=== PATIENT | male | born 1985 | race Caucasian/White ===

== ENCOUNTER 2017-11-07 03:53 | Observation (INO) | payer SELFPAY ==
[2017-11-07] MEDS ORDERED: ONDANSETRON HCL INJ/PF 4 MG/2 ML SDV IV ONE (04:06)
--- NOTE | 2017-11-07 04:17 | ER Document Report ---
ED General - General Chief Complaint: Nausea/Vomiting Stated Complaint: VOMITING Time Seen by Provider: 11/07/17 04:06 Notes: 32-year-old male presents with vomiting diarrhea. Started 3 days ago. Vomiting diarrhea started at the same time. Diarrhea has passed after 1 day but the vomiting has persisted. He gets better at night and then worse in the morning. He is been having ice chips only. He denies bloody diarrhea. He does have abdominal cramping which comes and goes around the time of the vomiting. He had chills but no fever. He smokes marijuana but "cannot afford to do it every day" and has never had nausea vomiting from marijuana. No antibiotics foreign travel or contact with her cane water. Denies jaundice. TRAVEL OUTSIDE OF THE [place] IN LAST 30 DAYS: No - Related Data Allergies/Adverse Reactions: Sulfa (Sulfonamide Antibiotics) Allergy (Verified 11/07/17 05:26) Past Medical History - Social History Smoking Status: Never Smoker Drug Abuse: Marijuana Family History: None Review of Systems - Review of Systems Notes: REVIEW OF SYSTEMS GEN: Denies fever, chills, weight loss ENT: Denies sore throat, nasal discharge, ear pain EYES: Denies blurry vision, eye pain, discharge CV: Denies chest pain, palpitations, edema RESP: Denies cough, shortness of breath, wheezing GI: Abdominal pain nausea vomiting MSK: Denies joint pain/swelling, edema, SKIN: Denies rash, skin lesions LYMPH: Denies swollen glands/lymph nodes NEURO: Denies headache, focal weakness or numbness, dizziness PSYCH: Denies depression, suicidal or homicidal ideation PHYSICAL EXAMINATION General: No acute distress, well-nourished Head: Atraumatic, normocephalic ENT: Mouth normal, oropharynx moist, no exudates or tonsillar enlargement Eyes: Conjunctiva normal, pupils equal, lids normal Neck: No JVD, supple, no guarding CVS: Normal rate, regular rhythm, no murmurs Resp: No resp distress, equal and normal breath sounds bilaterally GI: Nondistended, soft, no tenderness to palpation, no rebound or guarding Ext: No deformities, no edema, normal range of motion in upper and lower ext Back: No CVA or midline TTP Skin: No rash, warm Lymphatic: No lymphadeopathy noted Neuro: Awake, alert. Face symmetric. GCS 15. Physical Exam - Vital signs Vitals: Temp Pulse Resp BP Pulse Ox 98.2 F 77 18 137/79 H 100 11/07/17 03:53 11/07/17 03:53 11/07/17 03:53 11/07/17 03:53 11/07/17 03:53 Course - Re-evaluation Re-evalutation: 11/07/17 06:09 Presents with severe nausea and vomiting. Minimal tenderness. Made n.p.o. given fluids and nausea vacation. Differential includes urinary tract infection gastritis gastroneuritis appendicitis #2 colitis. His white count was grossly elevated at 20. CT was ordered. This showed acute appendicitis. Called surgical list at 6:10 AM and will be seen by Dr. TY. - Vital Signs Vital signs: Temp Pulse Resp BP Pulse Ox 98.2 F 77 18 137/79 H 100 11/07/17 03:53 11/07/17 03:53 11/07/17 03:53 11/07/17 03:53 11/07/17 03:53 - Laboratory Result Diagrams: 11/07/17 04:28 11/07/17 04:28 Laboratory results interpreted by me: 11/07/17 11/07/17 11/07/17 04:28 04:28 04:28 WBC 20.3 H Plt Count 556 H Seg Neuts % (Manual) 79 H Lymphocytes % (Manual) 8 L Abs Neuts (Manual) 16.0 H Abs Monocytes (Manual) 1.8 H Chloride 97 L Anion Gap 20 H BUN 35 H Creatinine 1.61 H Est GFR (Non-Af Amer) 49 L Glucose 133 H Calcium 10.3 H Urine Protein 100 H Urine Ketones TRACE H Urine Urobilinogen 2.0 H Ur Leukocyte Esterase SMALL H - Diagnostic Test Radiology reviewed: Image reviewed, Reports reviewed Discharge - Discharge Clinical Impression: Nausea and vomiting Qualifiers: Vomiting type: unspecified Vomiting Intractability: non-intractable Qualified Code(s): R11.2 - Nausea with vomiting, unspecified Acute appendicitis Qualifiers: Acute appendicitis type: with localized peritonitis Qualified Code(s): K35.3 - Acute appendicitis with localized peritonitis Condition: Good Disposition: ADMITTED INPATIENT Admitting Provider: Surgicalist Unit Admitted: Surgical Floor Instructions: Antinausea Medication ([facility]), Diarrhea, Nonspecific ([facility]), Vomiting ([facility]) Additional Instructions: Please follow-up with your primary care doctor if you are not feeling better in a day or 2. Please also return to the emergency department if your pain gets worse, the vomiting medicine does not work or you have any bloody vomit or diarrhea. Prescriptions: Ondansetron [Zofran Odt 4 mg Tablet] 1 - 2 tab PO Q4H PRN #15 tab.rapdis PRN Reason: For Nausea/Vomiting
[2017-11-07 04:49] LABS: MEAN CORPUSCULAR HGB CONC 34.7 g/dL (32.0-36.0); MEAN CORPUSCULAR VOLUME 86 fl (80-97); PLATELET COUNT 556 10^3/uL (150-450); RED BLOOD COUNT 5.33 10^6/uL (4.35-5.55); RED CELL DISTRIBUTION WIDTH 13.4 % (11.5-14.0); WHITE BLOOD COUNT 20.3 10^3/uL (4.0-10.5)
[2017-11-07 05:08] LABS: APPEARANCE,URINE CLOUDY; BILIRUBIN,URINE NEGATIVE (NEGATIVE); BLOOD UREA NITROGEN 35 mg/dL (7-20); CALCIUM 10.3 mg/dL (8.4-10.2); COLOR,URINE AMBER; GLUCOSE 133 mg/dL (75-110); GLUCOSE, URINE NEGATIVE (NEGATIVE); KETONES,URINE TRACE mg/dL (NEGATIVE); LEUKOCYTE ESTERASE,URINE SMALL (NEGATIVE); LIPASE 94.1 U/L (23-300); NITRITE,URINE NEGATIVE (NEGATIVE); POTASSIUM 4.4 mmol/L (3.6-5.0); PROTEIN,URINE 100 mg/dL (NEGATIVE); URINE SPECIFIC GRAVITY 1.033
[2017-11-07 05:09] LABS: ABSOLUTE LYMPHOCYTES# (MANUAL) 2.4 10^3/uL (0.5-4.7); ABSOLUTE MONOCYTES # (MANUAL) 1.8 10^3/uL (0.1-1.4); BASOPHILS % (MANUAL) 0 % (0-2); EOSINOPHILS % (MANUAL) 0 % (0-6); LYMPHOCYTES % (MANUAL) 8 % (13-45); MONOCYTES % (MANUAL) 9 % (3-13); SEGMENTED NEUTROPHILS % (MAN) 79 % (42-78); TOTAL CELLS COUNTED 100
[2017-11-07 05:11] LABS: PLATELET COMMENT INCREASED; RBC MORPHOLOGY COMMENT NORMO-CYTIC/CHROMIC
[2017-11-07 05:13] LABS: CARBON DIOXIDE 26 mmol/L (22-30); CHLORIDE 97 mmol/L (98-107); SODIUM 142.6 mmol/L (137-145)
[2017-11-07] MEDS ORDERED: FENTANYL CITRATE INJ/PF 100 MCG/2 ML AMPUL IV ONE (05:15)
[2017-11-07 05:18] LABS: ANION GAP 20 (5-19)
[2017-11-07] MEDS ORDERED: RINGERS SOLUTION,LACTATED 1,000 ML IV ONE (05:20)
--- NOTE | 2017-11-07 05:57 | RADIOLOGY REPORT (SQ) ---
EXAM DESCRIPTION: CT ABDOMEN PELVIS WITH IV CONTRAST COMPLETED DATE/TME: 11/07/2017 05:15 CLINICAL HISTORY: 32 years, Male, lower abd pain elev WBC COMPARISON: None. TECHNIQUE: Axial CT images of the abdomen and pelvis were obtained after the administration of IV contrast. Sagittal and coronal reformats were performed. DLP 661 Images stored on PACS. All CT scanners at this facility use dose modulation, iterative reconstruction, and/or weight based dosing when appropriate to reduce radiation dose to as low as reasonably achievable (ALARA). [facility]: Dose Right [facility]: CareDose [facility]: Dose Right [facility]: Teradose 4D [facility]: Smart [employer] LIMITATIONS: None. FINDINGS: The lung bases are clear. The liver, gallbladder, pancreas, spleen, adrenal glands, and kidneys appear normal. There is no hydronephrosis. There is no intraperitoneal free air or fluid. There is no lymphadenopathy. The abdominal aorta is normal in caliber. The stomach and small bowel are unremarkable. There is an appendicolith. The appendix is dilated measuring up to 9 mm in diameter with mild stranding around the tip. No evidence of a perforation or abscess/phlegmon formation. The colon appears unremarkable. The urinary bladder and prostate are unremarkable. There are no lytic or blastic bone lesions IMPRESSION: Acute uncomplicated appendicitis TECHNICAL DOCUMENTATION: Quality ID # 436: Final reports with documentation of one or more dose reduction techniques (e.g., Automated exposure control, adjustment of the mA and/or kV according to patient size, use of iterative reconstruction technique) 2010 [employer]- All Rights Reserved
[2017-11-07] MEDS ORDERED: NORMAL SALINE 1000 ML 1,000 ML IV ONE (06:51)
[2017-11-07] MEDS ORDERED: ERTAPENEM SODIUM INJ 1 GM VIAL IV ONE (06:51)
[2017-11-07] MEDS ORDERED: DEXTROSE 40% GEL 15 GM TUBE PO PRN ×2 (07:45)
[2017-11-07] MEDS ORDERED: DEXTROSE 50%-WATER 25 GM/50 ML DISP.SYRIN IV PRN ×2 (07:45)
[2017-11-07] MEDS ORDERED: GLUCAGON,HUMAN RECOMB 1 MG INJ SUBCUT PRN (07:45)
--- NOTE | 2017-11-07 07:45 | PDOC H&P ---
History of Present Illness Admission Date/PCP: 11/07/17 06:29 Patient complains of: Nausea vomiting and abdominal pain History of Present Illness: MADHU OLIVARES is a 32 year old male who presents with 2-day history of persistent nausea and vomiting along with diffuse abdominal pain. Patient has been intolerant of any p.o. intake for the past couple of days. He has had diffuse abdominal pain. After the multiple episodes of emesis he also developed severe indigestion and heartburn. He noticed some brownish discoloration to the emesis recently. He had associated diarrhea for the first day which has since stopped. Patient denies any prior episode of this sort of symptoms. No fever. No prior abdominal surgeries. Past Medical History Medical History: None Musculoskeletal History Note: Broken bones in the past Past Surgical History Past Surgical History: Reports: None Social History Smoking Status: Never Smoker Frequency of Alcohol Use: Rare Drugs: Marijuana Family History Family History: None Parental Family History Reviewed: No Children Family History Reviewed: No Sibling(s) Family History Reviewed.: No Medication/Allergy Home Medications: Ondansetron [Zofran Odt 4 mg Tablet] 1 - 2 tab PO Q4H PRN #15 tab.rapdis Allergies/Adverse Reactions: Sulfa (Sulfonamide Antibiotics) Allergy (Verified 11/07/17 05:26) Physical Exam Vital Signs: Temp Pulse Resp BP Pulse Ox 98.2 F 77 18 137/79 H 100 11/07/17 03:53 11/07/17 03:53 11/07/17 03:53 11/07/17 03:53 11/07/17 03:53 General appearance: PRESENT: cooperative, disheveled, mild distress, other - Patient prefers kneeling position. States that the he feels worse when he is supine. Eye exam: PRESENT: conjunctiva pink Respiratory exam: PRESENT: clear to auscultation jacoby Cardiovascular exam: PRESENT: RRR GI/Abdominal exam: PRESENT: other - Soft, nondistended, mild epigastric abdominal tenderness. No peritoneal signs. No lower abdominal tenderness to palpation. No palpable hernia defects Extremities exam: PRESENT: other - No swelling Neurological exam: PRESENT: alert, awake Psychiatric exam: PRESENT: appropriate affect Skin exam: PRESENT: warm Results Impressions: Abdomen/Pelvis CT 11/07/17 05:15 IMPRESSION: Acute uncomplicated appendicitis TECHNICAL DOCUMENTATION: Quality ID # 436: Final reports with documentation of one or more dose reduction techniques (e.g., Automated exposure control, adjustment of the mA and/or kV according to patient size, use of iterative reconstruction technique) 2010 [employer]- All Rights Reserved Assessment & Plan - Diagnosis (1) Acute appendicitis Is this a current diagnosis for this admission?: Yes Plan: Very atypical presentation for appendicitis with predominantly nausea and vomiting and no lower abdominal tenderness. However CT scan is suspicious for appendicitis with dilated appendix with inflammatory changes. The retrocecal location of the appendix may account for the atypical presentation and the absence of lower abdominal tenderness. Will hydrate the patient and start antibiotics and will discuss with oncoming surgeon about observation versus surgery.
[2017-11-07] MEDS: ONDANSETRON HCL INJ/PF 4 MG/2 ML SDV IV PRN (08:11)
[2017-11-07] MEDS: NORMAL SALINE 1000 ML 1,000 ML IV PRN (09:32)
[2017-11-07] MEDS: LANSOPRAZOLE 30 MG TAB.RAP.DR PO SCH ×2 (09:33→21:24)
[2017-11-07] MEDS ORDERED: ROCURONIUM BROMIDE INJ 50 MG/5 ML VIAL IV ONE (10:25)
[2017-11-07] MEDS ORDERED: SUCCINYLCHOLINE CHLORIDE INJ 200 MG/10 ML VIAL ONE (10:25)
[2017-11-07] MEDS ORDERED: PIPERACILLIN SODIUM/TAZOBACTAM 3.375 GM in NORMAL SALINE 100 ML IV SCH ×2 (14:30→22:00)
[2017-11-07] MEDS ORDERED: AMPICILLIN SOD/SULBACTAM 1.5 GM VIAL ONE (18:28)
[2017-11-07] MEDS ORDERED: ONDANSETRON HCL INJ/PF 4 MG/2 ML SDV ONE (18:53)
[2017-11-07] MEDS ORDERED: FENTANYL CITRATE INJ/PF 100 MCG/2 ML AMPUL ONE (18:53)
[2017-11-07] MEDS ORDERED: DEXAMETHASONE SOD PHOSPHATE INJ 4 MG/1 ML VIAL ONE (18:53)
[2017-11-07] MEDS ORDERED: MIDAZOLAM 2 MG/2 ML INJ ONE (18:53)
[2017-11-07] MEDS ORDERED: ACETAMINOPHEN 1,000 MG/100 ML RTUPB IV ONE (18:53)
[2017-11-07] MEDS ORDERED: PROPOFOL INJ 200 MG/20 ML VIAL IV ONE (18:53)
[2017-11-07] MEDS ORDERED: BUPIVACAINE HCL 0.5 % INJ/PF 30 ML SDV ONE (19:06)
[2017-11-07] MEDS ORDERED: OXYCODONE-ACETAMINOPHEN 5-325 MG TABLET PO PRN ×3 (19:31→20:12)
[2017-11-07] MEDS ORDERED: PROMETHAZINE HCL INJ 25 MG/1 ML VIAL IV PRN ×2 (19:31)
[2017-11-07] MEDS ORDERED: DIPHENHYDRAMINE HCL 50 MG/ML VIAL IV PRN (19:31)
[2017-11-07] MEDS ORDERED: FENTANYL CITRATE INJ/PF 100 MCG/2 ML AMPUL IV PRN ×3 (19:31)
[2017-11-07] MEDS ORDERED: MEPERIDINE HCL/PF INJ 25 MG/1 ML DISP.SYRIN IV PRN (19:31)
[2017-11-07] MEDS ORDERED: MORPHINE SULFATE 10 MG/ML INJ IV PRN (19:31)
[2017-11-07] MEDS ORDERED: ONDANSETRON HCL INJ/PF 4 MG/2 ML SDV IV PRN ×2 (19:31→20:12)
[2017-11-07] MEDS ORDERED: KETOROLAC TROMETHAMINE 10 MG TABLET PO PRN (20:12)
--- NOTE | 2017-11-07 20:12 | Operative Report ---
Operative Report DATE OF SURGERY: 11/07/17 PREOPERATIVE DIAGNOSIS: Acute Appendicitis POSTOPERATIVE DIAGNOSIS: Same OPERATION: Laparoscopic appendectomy SURGEON: ARNULFO MOISE ANESTHESIA: GA TISSUE REMOVED OR ALTERED: 1 appendix COMPLICATIONS: None ESTIMATED BLOOD LOSS: 5 cc INTRAOPERATIVE FINDINGS: See below PROCEDURE: The patient was taken to the preop holding area the main operating room general anesthesia was induced. Left arm was tucked the patient's side, abdomen previously shaved of hair then prepped and draped in sterile fashion Instrumentation was set up for laparoscopic appendectomy Surgical plan surgical conducted Organs were made on the skin for 3 port laparoscopy. Skin was Alexa ties at all 3 sites above the umbilicus above the suprapubic area midline in the left lower quadrant. A supraumbilical vertical incision was made with a knife Veress needle inserted the peritoneal cavity pneumoperitoneum was established. Veress needle was removed and a 5 mm ports inserted and a 5 mm flexible viewing scope was inserted. Under direct visualization 2 additional ports were placed one 5 mm in the suprapubic position and a 12 mm in the left lower quadrant. There was no evidence of visceral or vascular injury. Patient was placed in Trendelenburg position and right side up. Exposure to the ileocecum revealed the appendix was acutely inflamed. It was milked into the free peritoneal space photographed, and grasped with a grasper. The peritoneal attachment to the inferior surface of the cecum was released, and the mesoappendix was freed up. Using the grasper, we opened up a small window in the mesoappendix at the base of the appendix. We brought onto the field a Endo MAGALI stapler, a 5 mm, blue load. We fired it across the mesoappendix and the second firing was then performed amputating the appendix at its base. The appendix was placed in an Endobag and brought the patient to the left lower quadrant port site. We returned the peritoneal cavity checked for bleeding there was none. The staple line was sound, with no evidence of bleeding, it was photographed. Some residual blood in the pericecal area was aspirated. We performed minimal irrigation with saline, then aspirated that wash, then concluded the operation. We level the patient out, evacuated the pneumoperitoneum, remove all the ports. Wounds closed with 0 Vicryl, 3-0 Vicryl benzoin and Steri-Strips. Incisions were anesthetized with quarter percent Marcaine. Patient tolerated the procedure well, extubated, taken recovery in stable condition.
[2017-11-07] MEDS: KETOROLAC TROMETHAMINE INJ/PF 30 MG/1 ML SDV IV PRN (21:17)
[2017-11-07] MEDS ORDERED: LANSOPRAZOLE 30 MG TAB.RAP.DR PO ONE (22:15)
[2017-11-08] MEDS: ONDANSETRON HCL INJ/PF 4 MG/2 ML SDV IV PRN ×3 (00:02→08:02)
[2017-11-08] MEDS: KETOROLAC TROMETHAMINE INJ/PF 30 MG/1 ML SDV IV PRN (03:46)
[2017-11-08] MEDS: NORMAL SALINE 1000 ML 1,000 ML IV PRN (04:16)
[2017-11-08] MEDS: LANSOPRAZOLE 30 MG TAB.RAP.DR PO SCH (06:46)
[2017-11-08] MEDS ORDERED: ERTAPENEM SODIUM 1 GM in NORMAL SALINE 50 ML IV SCH (10:00)
[2017-11-08 16:09] VITALS: BP 130/94
--- NOTE | 2017-11-09 00:21 | DISCHARGE SUMMARY E ---
Discharge Summary NAME: MADHU OLIVARES : 1985 AGE: 32Y ADMITTED: 11/07/2017 DISCHARGED: 11/08/2017 FINAL DIAGNOSIS: Acute appendicitis. PROCEDURE DONE: Laparoscopic appendectomy, surgeon Dr. Monte. HOSPITAL COURSE: The patient complained of abdominal pains and had a CT scan of the abdomen in the emergency department which showed acute appendicitis. The patient underwent laparoscopic appendectomy on the day of admission on 11/07/17. The patient did well postoperatively, tolerating regular diet with minimal pains on the day of discharge on 11/08/17. The patient discharged improved on 11/08/17 with final diagnosis of acute appendicitis. ACTIVITY: Patient advised not to do any lifting no more than 10 pounds for the next 2 weeks. FOLLOW UP: Patient advised to follow up in the surgical clinic in 2 weeks. MEDICATION: He can just take Tylenol p.r.n. for pain. DICTATING PHYSICIAN: JENNIFER STRAUSS M.D. [id number] PHY#: [id number] ID: [id number] JOB#: [id number] ACCT: [id number] cc:NO Henry DOBSON M.D. . [facility], > MTDD
== END 2017-11-08 16:28 | disposition home or self-care (01) ==
LOC: ER 03:53 → EH 06:29 → INTOOBSV 06:29 → 4N 20:53
PROVIDERS: ATTEND Surgery
PROC: 0DTJ4ZZ Resection of Appendix, Percutaneous Endoscopic Approach (ICD-10-PCS; principal; 2017-11-07 16:45)
DX: K35.80 Unspecified acute appendicitis (principal); R12 Heartburn; F12.10 Cannabis abuse, uncomplicated
CPT/HCPCS: 99285; 96361; 96374; 96375; 36415; 87040; 83690; 85025; 80048; 81001; 88304 ×2; 74177; 44970; G0378 ×3; J2250; J3490 ×2; J1100; J3010; J1335 ×2; J1885 ×2; J0330; J0295; J2405 ×2; J2704; J0131; 840; J2543

== ENCOUNTER 2017-11-12 14:00 | Inpatient (IN) | payer OTHER ==
[2017-11-12 14:30] LABS: ABSOLUTE LYMPHOCYTES (AUTO) 1.1 10^3/uL (0.5-4.7); ABSOLUTE MONOCYTES (AUTO) 0.5 10^3/uL (0.1-1.4); ABSOLUTE NEUT (AUTO) 17.7 10^3/uL (1.7-8.2); BASOPHILS % (AUTO) 0.2 % (0-2); EOSINOPHILS % (AUTO) 0.1 % (0-6); HEMATOCRIT 45.5 % (37.9-51.0); HEMOGLOBIN 15.7 g/dL (13.5-17.0); LYMPHOCYTES % (AUTO) 5.8 % (13-45); MEAN CORPUSCULAR HEMOGLOBIN 29.8 pg (27.0-33.4); MEAN CORPUSCULAR HGB CONC 34.6 g/dL (32.0-36.0); MEAN CORPUSCULAR VOLUME 86 fl (80-97); MONOCYTES % (AUTO) 2.4 % (3-13); PLATELET COUNT 515 10^3/uL (150-450); RED BLOOD COUNT 5.28 10^6/uL (4.35-5.55); RED CELL DISTRIBUTION WIDTH 12.7 % (11.5-14.0); SEGMENTED NEUTROPHILS % (AUTO) 91.5 % (42-78); TOTAL CELLS COUNTED % (AUTO) 100 %
[2017-11-12 14:37] LABS: WHITE BLOOD COUNT 19.3 10^3/uL (4.0-10.5)
[2017-11-12 14:51] LABS: ALANINE AMINOTRANSFERASE 50 U/L (21-72); ALKALINE PHOSPHATASE 76 U/L (38-126); ANION GAP 14 (5-19); ASPARTATE AMINO TRANSFERASE 37 U/L (17-59); BILIRUBIN,DIRECT 0.5 mg/dL (0.0-0.4); BILIRUBIN,TOTAL 0.9 mg/dL (0.2-1.3); BLOOD UREA NITROGEN 14 mg/dL (7-20); CALCIUM 10.3 mg/dL (8.4-10.2); CARBON DIOXIDE 22 mmol/L (22-30); CHLORIDE 107 mmol/L (98-107); GLUCOSE 130 mg/dL (75-110); POTASSIUM 4.6 mmol/L (3.6-5.0); SODIUM 142.7 mmol/L (137-145); TOTAL PROTEIN 8.8 g/dL (6.3-8.2)
--- NOTE | 2017-11-12 16:22 | RADIOLOGY REPORT (SQ) ---
EXAM DESCRIPTION: CT ABD/PELVIS WITH IV ORAL COMPLETED DATE/TIME: 11/12/2017 3:42 pm REASON FOR STUDY: N/V (R11.2), ACQUIRED ABSENCE OF OTHER SPECIFIED PARTS OF DIGESTIVE TRACT R11.2 N AUSEA WITH VOMITING, UNSPECIFIED Z90.49 ACQUIRED ABSENCE OF OTHER SPECIFIED PARTS OF DIGESTIV COMPARISON: CT abdomen pelvis 11/07/2017 TECHNIQUE: CT scan of the abdomen and pelvis performed using helical scanning technique with dynamic intravenous contrast injection. No oral contrast. Images reviewed with lung, soft tissue, and bone windows. Reconstructed coronal and sagittal MPR images reviewed. Delayed images for evaluation of the urinary system also acquired. All images stored on PACS. All CT scanners at this facility use dose modulation, iterative reconstruction, and/or weight based d osing when appropriate to reduce radiation dose to as low as reasonably achievable (ALARA). [facility]: Dose Right [facility]: CareDose [facility]: Dose Right [facility]: Teradose 4D [facility]: [employer] CONTRAST TYPE AND DOSE: contrast/concentration: Isovue 350.00 mg/ml; Total Contrast Delivered: 83.0 ml; Total Saline Delivered: 68.0 ml RENAL FUNCTION: Creatinine 0.85 RADIATION DOSE: CT Rad equipment meets quality standard of care and radiation dose reduction techniq ues were employed. CTDIvol: 3.8 - 4.4 mGy. DLP: 446 mGy-cm.. LIMITATIONS: None. FINDINGS: LOWER CHEST: No significant findings. No nodules or infiltrates. LIVER: Normal size. No masses. No dilated ducts. SPLEEN: Normal size. No focal lesions. PANCREAS: No masses. No significant calcifications. No adjacent inflammation or peripancreatic fluid collections. Pancreatic duct not dilated. GALLBLADDER: No identified stones by CT criteria. No inflammatory changes to suggest cholecystitis. ADRENAL GLANDS: No significant masses or asymmetry. RIGHT KIDNEY AND URETER: No solid masses. No significant calcifications. No hydronephrosis or hyd roureter. LEFT KIDNEY AND URETER: No solid masses. No significant calcifications. No hydronephrosis or hydr oureter. AORTA AND VESSELS: No aneurysm. No dissection. Renal arteries, SMA, celiac without stenosis. RETROPERITONEUM: No retroperitoneal adenopathy, hemorrhage or masses. BOWEL AND PERITONEAL CAVITY: No masses or inflammatory changes. No free fluid or peritoneal masses. APPENDIX: Surgically absent PELVIS: No mass. No free fluid. Normal bladder. ABDOMINAL WALL: No masses. No hernias. BONES: No significant or acute findings. OTHER: No other significant finding. IMPRESSION: Post appendectomy. Otherwise unremarkable study. TECHNICAL DOCUMENTATION: JOB ID: [id number] Quality ID # [id number]: Final reports with documentation of one or more dose reduction techniques (e.g., Au tomated exposure control, adjustment of the mA and/or kV according to patient size, use of iterative reconstruction technique) 2010 [employer]- All Rights Reserved Reading location - IP/workstation name: [facility]-[email or web address]
[2017-11-12] MEDS ORDERED: ONDANSETRON HCL INJ/PF 4 MG/2 ML SDV IV PRN (16:33)
[2017-11-12] MEDS ORDERED: PROMETHAZINE HCL INJ 25 MG/1 ML VIAL IV PRN (16:33)
--- NOTE | 2017-11-12 16:36 | PDOC H&P ---
History of Present Illness Admission Date/PCP: 11/12/17 16:05 YULIYA BE MD History of Present Illness: MADHU OLIVARES is a 32 year old male who presented to the office today with increasing right lower quadrant abdominal pain, fevers, chills, nausea, and vomiting that is intractable. The patient was discharged from the hospital on Friday and was doing well per his report. The patient's nausea began early this morning. Patient has not been able to hold anything down. He cannot eat or drink. His pain is situated in his right lower quadrant and does not radiate. He rates it as 6 out of 10. Patient denies chest pain, shortness of breath, melena, hematochezia, dizziness, orthostasis, blurry vision, hematemesis. Nothing makes his pain or nausea better. Eating makes his nausea worse. Past Medical History Cardiac Medical History: Denies: Congestive Heart Failure, Myocardial Infarction, Hypertension Pulmonary Medical History: Denies: Asthma, Bronchitis, Chronic Obstructive Pulmonary Disease (COPD), Pneumonia, Tuberculosis Neurological Medical History: Denies: Seizures Renal/ Medical History: Denies: End Stage Renal Disease GI Medical History: Denies: Cirrhosis, Gastroesophageal Reflux Disease Musculoskeltal Medical History: Denies: Arthritis Psychiatric Medical History: Denies: Bipolar Disorder, Depression Hematology: Denies: Anemia, Bleeding Tendencies Past Surgical History Past Surgical History: Reports: Appendectomy - Recently Social History Smoking Status: Unknown if Ever Smoked Frequency of Alcohol Use: Rare Drugs: Marijuana Family History Family History: None Parental Family History Reviewed: Yes Children Family History Reviewed: Yes Sibling(s) Family History Reviewed.: Yes Medication/Allergy Home Medications: No Home Medications 11/07/17 Allergies/Adverse Reactions: Sulfa (Sulfonamide Antibiotics) Allergy (Verified 11/07/17 05:26) Review of Systems Constitutional: PRESENT: anorexia, chills, fever(s) Nose, Mouth, and Throat: ABSENT: sore throat Cardiovascular: ABSENT: chest pain, dyspnea on exertion Respiratory: ABSENT: cough, dyspnea Gastrointestinal: PRESENT: abdominal pain, bloating Musculoskeletal: ABSENT: back pain Integumentary: ABSENT: pruritus, rash Neurological: ABSENT: abnormal gait, abnormal speech, confusion, convulsions, dizziness Psychiatric: ABSENT: anxiety, depression Endocrine: ABSENT: cold intolerance, heat intolerance Hematologic/Lymphatic: ABSENT: easy bleeding, easy bruising Physical Exam General appearance: PRESENT: mild distress Head exam: PRESENT: atraumatic, normocephalic Eye exam: PRESENT: EOMI, PERRLA. ABSENT: scleral icterus Mouth exam: PRESENT: neck supple Neck exam: ABSENT: meningismus, tenderness, thyromegaly, tracheal deviation Respiratory exam: PRESENT: clear to auscultation jacoby, unlabored. ABSENT: chest wall tenderness, wheezes Cardiovascular exam: PRESENT: RRR Pulses: PRESENT: normal radial pulses Vascular exam: PRESENT: normal capillary refill. ABSENT: pallor GI/Abdominal exam: PRESENT: soft, tenderness - Right lower quadrant. ABSENT: distended Rectal exam: PRESENT: deferred Extremities exam: ABSENT: pedal edema Musculoskeletal exam: ABSENT: deformity Neurological exam: PRESENT: alert, awake, oriented to person, oriented to place , oriented to time, oriented to situation, CN II-XII grossly intact. ABSENT: motor sensory deficit Psychiatric exam: ABSENT: agitated, anxious, depressed Focused psych exam: ABSENT: delusional Skin exam: ABSENT: cyanosis, erythema, jaundice Results Laboratory Results: 11/12/17 14:23 11/12/17 14:23 11/12/17 11/12/17 14:23 14:23 WBC 19.3 H RBC 5.28 Hgb 15.7 Hct 45.5 MCV 86 MCH 29.8 MCHC 34.6 RDW 12.7 Plt Count 515 H Seg Neutrophils % 91.5 H Lymphocytes % 5.8 L Monocytes % 2.4 L Eosinophils % 0.1 Basophils % 0.2 Absolute Neutrophils 17.7 H Absolute Lymphocytes 1.1 Absolute Monocytes 0.5 Absolute Eosinophils 0.0 Absolute Basophils 0.0 Sodium 142.7 Potassium 4.6 Chloride 107 Carbon Dioxide 22 Anion Gap 14 BUN 14 Creatinine 0.85 Est GFR ( Amer) > 60 Est GFR (Non-Af Amer) > 60 Glucose 130 H Calcium 10.3 H Total Bilirubin 0.9 AST 37 ALT 50 Alkaline Phosphatase 76 Total Protein 8.8 H Albumin 5.0 I have personally reviewed the CT images. I am concerned that there may be a small amount of fluid surrounding the appendiceal staple line. This would be consistent with developing abscess. Status: Image reviewed by me Assessment & Plan - Diagnosis (1) Intra-abdominal infection Is this a current diagnosis for this admission?: Yes (2) Nausea and vomiting Qualifiers: Vomiting Intractability: intractable Is this a current diagnosis for this admission?: Yes - Plan Summary Plan Summary: This is a 32-year-old male 5 days status post appendectomy. The patient reports right lower quadrant pain and persistent nausea and vomiting. His white blood cell count is 19,000. I have reviewed his CT scan. I am concerned for small amount of fluid in the area of the staple line. This could be consistent with abscess. I will admit the patient to the hospital, start IV antibiotics and IV fluids. Repeat labs tomorrow.
[2017-11-12] MEDS: DEXTROSE 5%-LACTATED RINGERS 1,000 ML IV PRN ×2 (16:56→23:23)
[2017-11-12] MEDS: PIPERACILLIN SODIUM/TAZOBACTAM 3.375 GM in NORMAL SALINE 100 ML IV SCH ×2 (18:37→23:23)
[2017-11-13 05:11] LABS: ABSOLUTE EOSINOPHILS # (AUTO) 0.1 10^3/uL (0.0-0.6); ABSOLUTE LYMPHOCYTES (AUTO) 2.5 10^3/uL (0.5-4.7); ABSOLUTE MONOCYTES (AUTO) 1.2 10^3/uL (0.1-1.4); ABSOLUTE NEUT (AUTO) 9.4 10^3/uL (1.7-8.2); BASOPHILS % (AUTO) 0.2 % (0-2); EOSINOPHILS % (AUTO) 0.6 % (0-6); HEMATOCRIT 38.6 % (37.9-51.0); LYMPHOCYTES % (AUTO) 18.7 % (13-45); MEAN CORPUSCULAR HEMOGLOBIN 29.8 pg (27.0-33.4); MEAN CORPUSCULAR VOLUME 88 fl (80-97); MONOCYTES % (AUTO) 9.4 % (3-13); PLATELET COUNT 353 10^3/uL (150-450); RED BLOOD COUNT 4.41 10^6/uL (4.35-5.55); RED CELL DISTRIBUTION WIDTH 13.3 % (11.5-14.0); SEGMENTED NEUTROPHILS % (AUTO) 71.1 % (42-78); TOTAL CELLS COUNTED % (AUTO) 100 %; WHITE BLOOD COUNT 13.2 10^3/uL (4.0-10.5)
[2017-11-13] MEDS: PIPERACILLIN SODIUM/TAZOBACTAM 3.375 GM in NORMAL SALINE 100 ML IV SCH ×4 (05:15→23:05)
[2017-11-13 05:16] LABS: HEMOGLOBIN 13.1 g/dL (13.5-17.0)
[2017-11-13 05:30] LABS: ANION GAP 11 (5-19); BLOOD UREA NITROGEN 12 mg/dL (7-20); CALCIUM 9.3 mg/dL (8.4-10.2); CARBON DIOXIDE 27 mmol/L (22-30); CHLORIDE 104 mmol/L (98-107); GLUCOSE 96 mg/dL (75-110); SODIUM 141.7 mmol/L (137-145)
[2017-11-13] MEDS: DEXTROSE 5%-LACTATED RINGERS 1,000 ML IV PRN ×2 (08:58→19:50)
--- NOTE | 2017-11-13 10:50 | PDOC PROGRESS REPORT ---
Subjective Progress Note for:: 11/13/17 Subjective:: more comfortable. tolerating diet. No pains Reason For Visit: NAUSEA WITH VOMITING, UNSPECIFIED Physical Exam Vital Signs: Temp Pulse Resp BP Pulse Ox 97.4 F 72 16 113/72 100 11/13/17 08:00 11/13/17 08:00 11/13/17 08:00 11/13/17 08:00 11/13/17 08:00 Intake & Output 11/12/17 11/13/17 11/14/17 06:59 06:59 06:59 Intake Total 1106 1000 Balance 1106 1000 Weight 70 kg Exam: Abd is soft and non tender Results Laboratory Results: 11/13/17 04:02 11/13/17 04:02 11/12/17 11/12/17 11/13/17 14:23 14:23 04:02 WBC 19.3 H 13.2 H RBC 5.28 4.41 Hgb 15.7 13.1 L D Hct 45.5 38.6 MCV 86 88 MCH 29.8 29.8 MCHC 34.6 34.0 RDW 12.7 13.3 Plt Count 515 H 353 Seg Neutrophils % 91.5 H 71.1 Lymphocytes % 5.8 L 18.7 Monocytes % 2.4 L 9.4 Eosinophils % 0.1 0.6 Basophils % 0.2 0.2 Absolute Neutrophils 17.7 H 9.4 H Absolute Lymphocytes 1.1 2.5 Absolute Monocytes 0.5 1.2 Absolute Eosinophils 0.0 0.1 Absolute Basophils 0.0 0.0 Sodium 142.7 Potassium 4.6 Chloride 107 Carbon Dioxide 22 Anion Gap 14 BUN 14 Creatinine 0.85 Est GFR ( Amer) > 60 Est GFR (Non-Af Amer) > 60 Glucose 130 H Calcium 10.3 H Total Bilirubin 0.9 AST 37 ALT 50 Alkaline Phosphatase 76 Total Protein 8.8 H Albumin 5.0 11/13/17 04:02 WBC RBC Hgb Hct MCV MCH MCHC RDW Plt Count Seg Neutrophils % Lymphocytes % Monocytes % Eosinophils % Basophils % Absolute Neutrophils Absolute Lymphocytes Absolute Monocytes Absolute Eosinophils Absolute Basophils Sodium 141.7 Potassium 4.0 Chloride 104 Carbon Dioxide 27 Anion Gap 11 BUN 12 Creatinine 0.85 Est GFR ( Amer) > 60 Est GFR (Non-Af Amer) > 60 Glucose 96 Calcium 9.3 Total Bilirubin AST ALT Alkaline Phosphatase Total Protein Albumin Impressions: Abdomen/Pelvis CT 11/12/17 14:15 IMPRESSION: Post appendectomy. Otherwise unremarkable study. Assessment & Plan - Time Time Spent with patient: 15-24 minutes - Inpatient Certification Medical Necessity: Need for IV Antibiotics, Risk of Complication if Not Cared For in Hospital - Plan Summary Plan Summary: Continue IV antibiotics Monitor WBC
--- NOTE | 2017-11-13 13:11 | HISTORY AND PHYSICAL E ---
History and Physical NAME: MADHU OLIVARES : 1985 AGE: 32Y ADMITTED: 11/12/2017 ROOM: 530 CHIEF COMPLAINT: Nausea and vomiting. HISTORY OF PRESENT ILLNESS: This is a 32-year-old male who had a laparoscopic appendectomy done about a week ago by Dr. Monte. The patient did very well initially and discharged the next day improved. Today he woke up with some mild abdominal discomfort and had a bowel movement. After his bowel movement noted nausea and vomiting and went to the clinic today and sent for a CT scan of the abdomen, which did not show any collection. However, his white count is elevated to 19,000. He was then admitted for possible starting abscess. PAST HISTORY: Unremarkable, except for the laparoscopic appendectomy a week ago. SOCIAL HISTORY: Denies smoking or drinking, or use of recreational drugs. REVIEW OF SYSTEMS: As in HPI. Denies any headaches, fever, chills. No difficulty passing his urine. No cough or chest pains. No headaches. ALLERGIES: No known. FAMILY HISTORY: Noncontributory. PHYSICAL EXAMINATION: GENERAL: A well-developed, well-nourished, 32-year-old male alert and oriented, in no apparent acute distress. He feels a lot better now with IV fluids. He was able to take a nap and woke up with practically no more abdominal pains, nor nausea or vomiting. LUNGS: Clear. HEART: Regular sinus rhythm. ABDOMEN: Soft, nontender. EXTREMITIES: No edema. IMPRESSION: 1. Postoperative nausea and vomiting. 2. Possible starting infection intraabdominal. PLAN: 1. Start IV hydration. 2. IV antibiotics after cultures. 3. Gradually resume diet. 4. Monitor white count. DICTATING PHYSICIAN: JENNIFER STRAUSS M.D. [id number] PHY#: [id number] ID: [id number] JOB#: [id number] ACCT: [id number] cc:JENNIFER STRAUSS M.D., TRAVIS M.D. >
[2017-11-14] MEDS: PIPERACILLIN SODIUM/TAZOBACTAM 3.375 GM in NORMAL SALINE 100 ML IV SCH (05:01)
[2017-11-14] MEDS: DEXTROSE 5%-LACTATED RINGERS 1,000 ML IV PRN (05:01)
[2017-11-14] MEDS ORDERED: LEVOFLOXACIN 500 MG TABLET PO ONE (10:00)
[2017-11-14 10:02] LABS: ABSOLUTE EOSINOPHILS # (AUTO) 0.1 10^3/uL (0.0-0.6); ABSOLUTE LYMPHOCYTES (AUTO) 1.8 10^3/uL (0.5-4.7); ABSOLUTE MONOCYTES (AUTO) 0.8 10^3/uL (0.1-1.4); ABSOLUTE NEUT (AUTO) 4.8 10^3/uL (1.7-8.2); BASOPHILS % (AUTO) 0.5 % (0-2); HEMATOCRIT 37.9 % (37.9-51.0); HEMOGLOBIN 13.2 g/dL (13.5-17.0); LYMPHOCYTES % (AUTO) 24.7 % (13-45); MEAN CORPUSCULAR HEMOGLOBIN 30.5 pg (27.0-33.4); MEAN CORPUSCULAR HGB CONC 34.9 g/dL (32.0-36.0); MEAN CORPUSCULAR VOLUME 87 fl (80-97); PLATELET COUNT 337 10^3/uL (150-450); RED BLOOD COUNT 4.34 10^6/uL (4.35-5.55); RED CELL DISTRIBUTION WIDTH 13.1 % (11.5-14.0); SEGMENTED NEUTROPHILS % (AUTO) 63.8 % (42-78); TOTAL CELLS COUNTED % (AUTO) 100 %; WHITE BLOOD COUNT 7.5 10^3/uL (4.0-10.5)
[2017-11-14 12:26] VITALS: BP 118/78
--- NOTE | 2017-11-14 12:39 | DISCHARGE SUMMARY E ---
Discharge Summary NAME: MADHU OLIVARES : 1985 AGE: 32Y ADMITTED: 11/13/2017 DISCHARGED: 11/14/2017 DIAGNOSIS: Status post laparoscopic appendectomy with postop elevation in white count, abdominal pains and nausea and vomiting. HOSPITAL COURSE: This is a 32-year-old male who had laparoscopic appendectomy done over a week ago. On the day of admission, patient noted to have abdominal pains and nausea and vomiting. He went to the surgical clinic and was sent for a CAT scan and blood work. CAT scan did not show any definite collection, but his white count was elevated to 19,000. He was immediately placed on IV antibiotics and IV fluids. After a couple of hours in the hospital and after starting the fluids and antibiotics, the patient felt a lot better. The next day on 11/13/2017, a CBC was done, which showed a white count that was down to 13.2, and on the day of discharge, his white count is normal at 7.5. While in the hospital, the patient has been tolerating a regular diet and has been very comfortable. He was then discharged improved on 11/14/2017. FINAL DIAGNOSIS: Post laparoscopic appendectomy with likely starting abscess. DISCHARGE INSTRUCTIONS: Patient discharged on p.o. Cipro 500 mg p.o. twice a day for the next 3-4 days. Patient to be followed up in the surgical clinic next week. Patient advised to come back to the hospital for any fever or nausea or vomiting. Patient advised also not to do any heavy lifting more than 10-15 pounds for the next week. DICTATING PHYSICIAN: JENNIFER STRAUSS M.D. [id number] PHY#: [id number] ID: [id number] JOB#: [id number] ACCT: [id number] cc:YULIYA BE M.D. JENNIFER STRAUSS M.D. >
== END 2017-11-14 12:19 | disposition home or self-care (01) | DRG 863 ==
LOC: EDSTATUS 14:00 → RAD 14:06 → 5 16:05 → OBSVTOIN 11-13 15:02
PROVIDERS: ADMIT Surgery; ATTEND Surgery
DX: T81.43XA Infection following a procedure, organ and space surgical site, initial encounter (principal); K91.0 Vomiting following gastrointestinal surgery; Y83.6 Removal of other organ (partial) (total) as the cause of abnormal reaction of the patient, or of later complication, without mention of misadventure at the time of the procedure; Z90.49 Acquired absence of other specified parts of digestive tract; Z88.2 Allergy status to sulfonamides
CPT/HCPCS: 36415; 74177; 80048; 80053; 85025; 90471; 90686; G0008; G0378; G0379; J2405; J2543

== ENCOUNTER 2017-12-09 12:00 | Emergency (ER) | payer OTHER ==
[2017-12-09 12:08] VITALS: BP 118/82
[2017-12-09] MEDS ORDERED: DICYCLOMINE HCL 20 MG TABLET PO ONE (12:26)
--- NOTE | 2017-12-09 12:28 | ER Document Report ---
ED GI Bleed / Rectal Pain - General Chief Complaint: Bloody Stools Stated Complaint: ABDOMINAL PAIN Time Seen by Provider: 12/09/17 12:19 Mode of Arrival: Ambulatory Information source: Patient Notes: Chief complaint: abdominal pain: History of complain:( obtained from----patient) 32 years old male recently had an appendectomy, presents today with left lower quadrant abdominal discomfort, associated with on and off cramps, the cramps improve after defecation. One time noted bright red blood. Stools were hard. Denies any nausea vomiting fever chills or other constitutional symptoms. Denies any dysuria frequency urgency. Onset: As above Duration: Gradual Severity: Mild to moderate Quality: Crampy Context: Unknown Exacerbating factor and relieving factors: Unknown REVIEW OF SYSTEMS: CONSTITUTIONAL : Denies fever, chills, or sweats. Denies recent illness. EENT: Denies eye, ear, throat, or mouth pain or symptoms. Denies nasal or sinus congestion or discharge. Denies throat, tongue, or mouth swelling or difficulty swallowing. CARDIOVASCULAR: Denies chest pain. Denies palpitations or racing or irregular heart beat. Denies ankle edema. RESPIRATORY: Denies cough, cold, or chest congestion. Denies shortness of breath, difficulty breathing, or wheezing. GASTROINTESTINAL: Denies distention. Denies nausea, vomiting, or diarrhea. Denies blood in vomitus, stools, or per rectum. Denies black, tarry stools. Denies constipation. GENITOURINARY: Denies difficulty urinating, painful urination, burning, frequency, blood in urine, or discharge. FEMALE GENITOURINARY: Denies vaginal bleeding, heavy or abnormal periods, irregular periods. Denies vaginal discharge or odor. MUSCULOSKELETAL: Denies back or neck pain or stiffness. Denies joint pain or swelling. SKIN: Denies rash, lesions or sores. HEMATOLOGIC : Denies easy bruising or bleeding. LYMPHATIC: Denies swollen, enlarged glands. NEUROLOGICAL: Denies confusion or altered mental status. Denies passing out or loss of consciousness. Denies dizziness or lightheadedness. Denies headache. Denies weakness or paralysis or loss of use of either side. Denies problems with gait or speech. Denies sensory loss, numbness, or tingling. Denies seizures. PSYCHIATRIC: Denies anxiety or stress. Denies depression, suicidal ideation, or homicidal ideation. ALL OTHER SYSTEMS REVIEWED AND NEGATIVE. PHYSICAL EXAMINATION: GENERAL: Well-appearing, well-nourished and in no acute distress. HEAD: Atraumatic, normocephalic. EYES: Pupils equal round and reactive to light, extraocular movements intact, conjunctiva are normal. ENT: Nares patent, oropharynx clear without exudates. Moist mucous membranes. NECK: Normal range of motion, supple without lymphadenopathy LUNGS: Breath sounds clear to auscultation bilaterally and equal. No wheezes rales or rhonchi. HEART: Regular rate and rhythm without murmurs ABDOMEN: Soft, nontender, nondistended abdomen. No guarding, no rebound. No masses appreciated. Female : deferred Musculoskeletal: Normal range of motion, no pitting or edema. No cyanosis. NEUROLOGICAL: Cranial nerves grossly intact. Normal speech, normal gait. Normal sensory, motor exams PSYCH: Normal mood, normal affect. SKIN: Warm, Dry, normal turgor, no rashes or lesions noted. Dictation was performed using [employer] voice recognition software TRAVEL OUTSIDE OF THE [place] IN LAST 30 DAYS: No - HPI Notes: Dictated - Related Data Allergies/Adverse Reactions: Sulfa (Sulfonamide Antibiotics) Allergy (Verified 11/07/17 05:26) Past Medical History - Social History Smoking Status: Never Smoker Chew tobacco use (# tins/day): No Frequency of alcohol use: None Drug Abuse: Marijuana Family History: None, Reviewed & Not Pertinent Patient has suicidal ideation: No Patient has homicidal ideation: No - Past Medical History Cardiac Medical History: Denies: Hx Congestive Heart Failure, Hx Heart Attack, Hx Hypertension Pulmonary Medical History: Denies: Hx Asthma, Hx Bronchitis, Hx COPD, Hx Pneumonia, Hx Tuberculosis Neurological Medical History: Denies: Hx Seizures Renal/ Medical History: Denies: Hx Benign Prostatic Hyperplasia, Hx End Stage Renal Disease, Hx Kidney Stones, Hx Peritoneal Dialysis GI Medical History: Denies: Hx Cirrhosis, Hx Gastroesophageal Reflux Disease, Hx Ulcer Musculoskeletal Medical History: Denies Hx Arthritis, Denies Hx Multiple Sclerosis Psychiatric Medical History: Denies: Hx Bipolar Disorder, Hx Depression, Hx Schizophrenia Past Surgical History: Reports: Hx Appendectomy - Immunizations Hx Diphtheria, Pertussis, Tetanus Vaccination: Yes Review of Systems - Review of Systems Notes: Dictated Physical Exam - Vital signs Vitals: Temp Pulse Resp BP Pulse Ox 98.0 F 97 16 118/82 99 12/09/17 12:06 12/09/17 12:06 12/09/17 12:06 12/09/17 12:06 12/09/17 12:06 - Notes Notes: Dictated Course - Vital Signs Vital signs: Temp Pulse Resp BP Pulse Ox 98.0 F 97 16 118/82 99 12/09/17 12:06 12/09/17 12:06 12/09/17 12:06 12/09/17 12:06 12/09/17 12:06 - Laboratory Result Diagrams: 12/09/17 12:37 - Diagnostic Test Radiology reviewed: Image reviewed - Abdominal x-ray shows large amount of fecal material no air-fluid level or distention of the bowel loop Discharge - Discharge Clinical Impression: Abdominal pain Qualifiers: Abdominal location: left lower quadrant Qualified Code(s): R10.32 - Left lower quadrant pain Constipation Qualifiers: Constipation type: slow transit constipation Qualified Code(s): K59.01 - Slow transit constipation Condition: Fair Disposition: HOME, SELF-CARE Instructions: Abdominal Pain ([facility]), Bulk Laxatives, Constipation ([facility]) Prescriptions: Dicyclomine HCl [Bentyl 10 mg Capsule] 1 cap PO TID #30 cap Lactulose 20 gm PO BID #120 ml Referrals: YULIYA BE MD [ACTIVE STAFF] - Follow up as needed
[2017-12-09 12:55] LABS: ABSOLUTE EOSINOPHILS # (AUTO) 0.1 10^3/uL (0.0-0.6); ABSOLUTE LYMPHOCYTES (AUTO) 2.1 10^3/uL (0.5-4.7); ABSOLUTE MONOCYTES (AUTO) 0.8 10^3/uL (0.1-1.4); ABSOLUTE NEUT (AUTO) 5.4 10^3/uL (1.7-8.2); BASOPHILS % (AUTO) 0.3 % (0-2); HEMATOCRIT 45.6 % (37.9-51.0); HEMOGLOBIN 15.6 g/dL (13.5-17.0); LYMPHOCYTES % (AUTO) 25.2 % (13-45); MEAN CORPUSCULAR HEMOGLOBIN 29.9 pg (27.0-33.4); MEAN CORPUSCULAR HGB CONC 34.2 g/dL (32.0-36.0); MEAN CORPUSCULAR VOLUME 87 fl (80-97); MONOCYTES % (AUTO) 9.3 % (3-13); PLATELET COUNT 393 10^3/uL (150-450); RED BLOOD COUNT 5.22 10^6/uL (4.35-5.55); RED CELL DISTRIBUTION WIDTH 12.9 % (11.5-14.0); SEGMENTED NEUTROPHILS % (AUTO) 64.2 % (42-78); TOTAL CELLS COUNTED % (AUTO) 100 %; WHITE BLOOD COUNT 8.4 10^3/uL (4.0-10.5)
--- NOTE | 2017-12-09 13:08 | RADIOLOGY REPORT (SQ) ---
EXAM DESCRIPTION: KUB/ABDOMEN (SINGLE VIEW) COMPLETED DATE/TIME: 12/09/2017 12:48 pm REASON FOR STUDY: Abdominal pain COMPARISON: None. NUMBER OF VIEWS: One view. TECHNIQUE: Supine radiographic image of the abdomen acquired. LIMITATIONS: None. FINDINGS: BOWEL GAS PATTERN: Normal bowel gas pattern. No dilated loops. CALCIFICATIONS: No suspicious calcifications. SOFT TISSUES: No gross mass or suggestion of organomegaly. HARDWARE: None in the abdomen. BONES: No acute fracture. No worrisome bone lesions. OTHER: No other significant finding. IMPRESSION: NO RADIOGRAPHIC EVIDENCE FOR ACUTE ABDOMINAL DISEASE. TECHNICAL DOCUMENTATION: JOB ID: [id number] [employer]- All Rights Reserved Reading location - IP/workstation name: [email or web address]
== END 2017-12-09 13:44 | disposition home or self-care (01) ==
LOC: ER 12:00
DX: K59.01 Slow transit constipation (principal); R10.32 Left lower quadrant pain
CPT/HCPCS: 99285; 36415; 85025; 74018; J3490

== ENCOUNTER 2017-12-14 06:28 | Emergency (ER) | payer OTHER ==
[2017-12-14] MEDS ORDERED: RINGERS SOLUTION,LACTATED 1,000 ML IV ONE ×2 (06:58→10:00)
[2017-12-14] MEDS ORDERED: ONDANSETRON HCL INJ/PF 4 MG/2 ML SDV IV ONE (06:59)
[2017-12-14 07:31] LABS: ABSOLUTE BASOPHILS # (AUTO) 0.1 10^3/uL (0.0-0.2); ABSOLUTE EOSINOPHILS # (AUTO) 0.1 10^3/uL (0.0-0.6); ABSOLUTE LYMPHOCYTES (AUTO) 1.8 10^3/uL (0.5-4.7); ABSOLUTE MONOCYTES (AUTO) 1.4 10^3/uL (0.1-1.4); ABSOLUTE NEUT (AUTO) 11.9 10^3/uL (1.7-8.2); BASOPHILS % (AUTO) 0.6 % (0-2); EOSINOPHILS % (AUTO) 0.4 % (0-6); HEMATOCRIT 46.8 % (37.9-51.0); HEMOGLOBIN 16.5 g/dL (13.5-17.0); LYMPHOCYTES % (AUTO) 11.6 % (13-45); MEAN CORPUSCULAR HEMOGLOBIN 30.4 pg (27.0-33.4); MEAN CORPUSCULAR HGB CONC 35.2 g/dL (32.0-36.0); MEAN CORPUSCULAR VOLUME 86 fl (80-97); MONOCYTES % (AUTO) 9.4 % (3-13); PLATELET COUNT 442 10^3/uL (150-450); RED BLOOD COUNT 5.41 10^6/uL (4.35-5.55); RED CELL DISTRIBUTION WIDTH 12.8 % (11.5-14.0); TOTAL CELLS COUNTED % (AUTO) 100 %; WHITE BLOOD COUNT 15.3 10^3/uL (4.0-10.5)
--- NOTE | 2017-12-14 07:45 | RADIOLOGY REPORT (SQ) ---
EXAM DESCRIPTION: X-ray abdomen two views CLINICAL DATA: 32-year-old male with abdominal pain, suspect ileus.. TECHNICAL DATA: Supine and upright x-ray views of the abdomen were performed and compared to a study performed on 12/09/2017. Comparison: 12/09/2017. FINDINGS: The bowel gas pattern is nonspecific and nonobstructive. There are radiopaque densities within the stomach which may be related to oral contrast or possibly ingested medication. These do not represent pancreatic calcifications. No pathologic abdominal or pelvic calcifications are identified. No abnormal air collections are identified. No focal soft tissue abnormalities are seen. No acute osseous abnormalities are identified. The lung bases are clear. IMPRESSION: 1. Nonspecific and nonobstructive bowel gas pattern. There is no evidence of an ileus. 2. New radiopaque densities in the left upper quadrant projecting over the region of the stomach possibly reflecting oral contrast or possibly ingested medication. These do not represent pancreatic calcifications.
[2017-12-14 07:50] LABS: APPEARANCE,URINE CLOUDY; BILIRUBIN,URINE SMALL (NEGATIVE); CALCIUM OXALATE CRYSTALS,URINE FEW /HPF; COLOR,URINE AMBER; GLUCOSE, URINE NEGATIVE (NEGATIVE); KETONES,URINE NEGATIVE (NEGATIVE); LEUKOCYTE ESTERASE,URINE NEGATIVE (NEGATIVE); NITRITE,URINE NEGATIVE (NEGATIVE); PROTEIN,URINE 100 mg/dL (NEGATIVE); URINE SPECIFIC GRAVITY 1.039
[2017-12-14 07:53] LABS: ALANINE AMINOTRANSFERASE 26 U/L (21-72); ALBUMIN 4.9 g/dL (3.5-5.0); ALKALINE PHOSPHATASE 79 U/L (38-126); ANION GAP 16 (5-19); ASPARTATE AMINO TRANSFERASE 27 U/L (17-59); BILIRUBIN,DIRECT 0.2 mg/dL (0.0-0.4); BILIRUBIN,TOTAL 0.7 mg/dL (0.2-1.3); BLOOD UREA NITROGEN 17 mg/dL (7-20); CALCIUM 10.4 mg/dL (8.4-10.2); CARBON DIOXIDE 24 mmol/L (22-30); CHLORIDE 101 mmol/L (98-107); GLUCOSE 128 mg/dL (75-110); POTASSIUM 4.6 mmol/L (3.6-5.0); SODIUM 141.3 mmol/L (137-145); TOTAL PROTEIN 8.5 g/dL (6.3-8.2)
[2017-12-14] MEDS ORDERED: METOCLOPRAMIDE HCL ORAL SOLN 10 MG/10 ML UDCUP PO ONE (08:11)
[2017-12-14] MEDS ORDERED: LIDOCAINE 2% VISCOUS SOLN 20 ML UDCUP PO ONE (08:11)
[2017-12-14] MEDS ORDERED: KETOROLAC TROMETHAMINE INJ/PF 30 MG/1 ML SDV IV ONE (08:11)
[2017-12-14] MEDS ORDERED: MAG HYDROX/AL HYDROX/SIMETH SUSP 30 ML UDCUP PO ONE (08:11)
--- NOTE | 2017-12-14 08:12 | ER Document Report ---
ED General - General Chief Complaint: Nausea/Vomiting Stated Complaint: NAUSEA/VOMITING Time Seen by Provider: 12/14/17 06:49 Mode of Arrival: Ambulatory Information source: Patient, Parent TRAVEL OUTSIDE OF THE [place] IN LAST 30 DAYS: No - HPI Patient complains to provider of: Abdominal pain Onset: Other - Here is a 32-year-old man that underwent an appendectomy a little over 1 month prior the presents for evaluation of abdominal pain as well as constipation over the last 3-4 days. He notes that since his appendectomy he has had persistent abdominal pain was previously seen and admitted to the hospital for an elevated white count as well as abdominal pain postoperatively for possible abscess though in one was never identified and he had been doing okay afterwards. He subsequently presented again was diagnosed with constipation given an aggressive bowel regimen but has not responded appropriately. He presents for recurrent nausea and vomiting today. Denies fevers or chills, has not had a bowel movement 4 days, does endorse nausea, does endorse some pain associated after vomiting denies any chest pain shortness of breath lightheadedness diaphoresis or other symptoms. - Related Data Allergies/Adverse Reactions: Sulfa (Sulfonamide Antibiotics) Allergy (Verified 12/14/17 06:59) Past Medical History - General Information source: Patient, Parent - Social History Smoking Status: Never Smoker Frequency of alcohol use: None Drug Abuse: Marijuana Family History: None, Reviewed & Not Pertinent Patient has suicidal ideation: No Patient has homicidal ideation: No - Past Medical History Cardiac Medical History: Denies: Hx Congestive Heart Failure, Hx Heart Attack, Hx Hypertension Pulmonary Medical History: Denies: Hx Asthma, Hx Bronchitis, Hx COPD, Hx Pneumonia, Hx Tuberculosis Neurological Medical History: Denies: Hx Seizures Renal/ Medical History: Denies: Hx Benign Prostatic Hyperplasia, Hx End Stage Renal Disease, Hx Kidney Stones, Hx Peritoneal Dialysis GI Medical History: Denies: Hx Cirrhosis, Hx Gastroesophageal Reflux Disease, Hx Ulcer Musculoskeletal Medical History: Denies Hx Arthritis, Denies Hx Multiple Sclerosis Psychiatric Medical History: Denies: Hx Bipolar Disorder, Hx Depression, Hx Schizophrenia Past Surgical History: Reports: Hx Appendectomy - Immunizations Hx Diphtheria, Pertussis, Tetanus Vaccination: Yes Review of Systems - Review of Systems -: Yes All other systems reviewed and negative Physical Exam - Vital signs Vitals: Temp Pulse Resp BP Pulse Ox 98.1 F 67 18 149/99 H 97 12/14/17 06:35 12/14/17 06:35 12/14/17 06:35 12/14/17 06:35 12/14/17 06:35 - General General appearance: Appears well In distress: None - HEENT Head: Normocephalic Eyes: Normal Conjunctiva: Normal Cornea: Normal Extraocular movements intact: Yes Eyelashes: Normal Pupils: PERRL - Respiratory Respiratory status: No respiratory distress Chest status: Nontender Breath sounds: Normal Chest palpation: Normal - Cardiovascular Rhythm: Regular Heart sounds: Normal auscultation Murmur: No - Abdominal Inspection: Normal Distension: No distension Tenderness: Nontender - Back Back: Normal - Extremities General upper extremity: Normal inspection, Nontender, Normal strength, Normal temperature General lower extremity: Normal inspection, Nontender, Normal strength, Normal temperature - Neurological Neuro grossly intact: Yes Cognition: Normal Orientation: AAOx4 Neola Coma Scale Eye Opening: Spontaneous Neola Coma Scale Verbal: Oriented Neola Coma Scale Motor: Obeys Commands Neola Coma Scale Total: 15 Speech: Normal Cranial nerves: Normal Motor strength normal: LUE, RUE, LLE, RLE - Psychological Associated symptoms: Normal affect Course - Re-evaluation Re-evalutation: 12/14/17 18:49 This 32-year-old man his mother does the majority of the talking form presents for constipation and abdominal pain with recurrent vomiting. On examination his abdominal exam is benign however he has had a surgery 1 month prior and I do have some concern about this. Patient's blood count does demonstrate a leukocytosis but no other obvious abnormalities will administer fluid, antiemetics, and plan for an x-ray of the abdomen and pelvis. X-ray does demonstrate a incredible amount of stool in the abdomen and pelvis. Following administration of Zofran patient continued to have episodes of emesis thereafter, attempted to administer GI cocktail, administered an enema, administered Reglan through the IV to help with his nausea as well as a second liter of fluid all with minor improvement. Given this patient's persistent inability to tolerate p.o. we will plan for this patient undergo CT imaging of the abdomen and pelvis for possible obstructive process. Following enema patient did have passage of some stool. Following CT imaging no other acute abnormality was identified in this patient' s abdomen or pelvis, I reevaluated the patient his abdominal examination is benign at this time. Given that he is well-appearing and able to tolerate p.o. with a benign abdominal examination I believe he is likely safe for discharge, will give him an aggressive bowel regimen with magnesium citrate as well as MiraLAX hourly and enemas at home. He will also be given Zofran to help with his nausea he was given return precautions and discharged in the care of his mother they were in agreement with this course of action at this time. - Vital Signs Vital signs: Temp Pulse Resp BP Pulse Ox 98.3 F 72 16 125/72 98 12/14/17 16:29 12/14/17 16:29 12/14/17 16:29 12/14/17 16:29 12/14/17 16:29 - Laboratory Result Diagrams: 12/14/17 07:16 12/14/17 07:16 Laboratory results interpreted by me: 12/14/17 12/14/17 12/14/17 07:16 07:16 07:16 WBC 15.3 H Lymphocytes % 11.6 L Absolute Neutrophils 11.9 H Glucose 128 H Calcium 10.4 H Total Protein 8.5 H Urine Protein 100 H Urine Bilirubin SMALL H Urine Urobilinogen 2.0 H Discharge - Discharge Clinical Impression: Abdominal pain Constipation Qualifiers: Constipation type: unspecified constipation type Qualified Code(s): K59.00 - Constipation, unspecified Nausea and vomiting Qualifiers: Vomiting type: unspecified Vomiting Intractability: unspecified Qualified Code( s): R11.2 - Nausea with vomiting, unspecified Condition: Good Disposition: HOME, SELF-CARE Instructions: Antinausea Medication ([facility]), Bulk Laxatives, Vomiting ([facility]) Additional Instructions: Your seen today in the emergency department for your abdominal pain and vomiting. It appears that you have horrible constipation. We will give you a prescription for Zofran to help with your nausea. We will give you an aggressive bowel regimen, drink half the bottle of magnesium citrate, finish that rest of the magnesium citrate if you did not have bowel movements in the next hour. Take up serving of MiraLAX per hour thereafter until you begin to have bowel movements. Return for worsening fevers or chills inability to eat or drink Prescriptions: Ondansetron [Zofran Odt 4 mg Tablet] 1 - 2 tab PO Q4H PRN #15 tab.rapdis PRN Reason: For Nausea/Vomiting Polyethylene Glycol 3350 [Miralax Powder 17 gm/Packet] 1 packet PO DAILY #1 pkg
[2017-12-14] MEDS ORDERED: MAGNESIUM CITRATE 296 ML BOTTLE PO ONE ×2 (10:00→16:18)
[2017-12-14] MEDS ORDERED: METOCLOPRAMIDE HCL INJ/PF 10 MG/2 ML SDV IV ONE (10:23)
[2017-12-14] MEDS ORDERED: MINERAL OIL 30 ML UDCUP ONE (10:25)
--- NOTE | 2017-12-14 14:46 | RADIOLOGY REPORT (SQ) ---
EXAM DESCRIPTION: CT ABD/PELVIS WITH IV ONLY COMPLETED DATE/TIME: 12/14/2017 2:00 pm REASON FOR STUDY: concern for obstruction COMPARISON: 11/07/2017 TECHNIQUE: CT scan of the abdomen and pelvis performed using helical scanning technique with dynamic intravenous contrast injection. No oral contrast. Images reviewed with lung, soft tissue, and bone w indows. Reconstructed coronal and sagittal MPR images reviewed. Delayed images for evaluation of the urinary system also acquired. All images stored on PACS. All CT scanners at this facility use dose modulation, iterative reconstruction, and/or weight based d osing when appropriate to reduce radiation dose to as low as reasonably achievable (ALARA). [facility]: Dose Right [facility]: CareDose [facility]: Dose Right [facility]: Teradose 4D [facility]: [employer] CONTRAST TYPE AND DOSE: contrast/concentration: Isovue 350.00 mg/ml; Total Contrast Delivered: 76.0 ml; Total Saline Delivered: 67.0 ml RENAL FUNCTION: None required. The patient is less than 50 years old. RADIATION DOSE: CT Rad equipment meets quality standard of care and radiation dose reduction techniq ues were employed. CTDIvol: 5.4 - 7.2 mGy. DLP: 722 mGy-cm.. LIMITATIONS: None. FINDINGS: LOWER CHEST: No significant findings. LIVER: Normal size. No enhancing masses. No dilated ducts. SPLEEN: Normal size. No focal lesions. PANCREAS: No masses identified. No significant calcifications. No adjacent inflammation or peripancre atic fluid collections. Pancreatic duct not dilated. GALLBLADDER: No calcified stones. No inflammatory changes to suggest cholecystitis. ADRENAL GLANDS: No significant masses. RIGHT KIDNEY AND URETER: No cysts identified. No solid masses identified. No calcified stones. No hyd ronephrosis or hydroureter. LEFT KIDNEY AND URETER: No cysts identified. No solid masses identified. No calcified stones. No hydr onephrosis or hydroureter. AORTA AND VESSELS: No aneurysm. No dissection. Renal arteries, SMA, celiac without significant stenos is. RETROPERITONEUM: No bulky retroperitoneal adenopathy. BOWEL AND PERITONEAL CAVITY: No obstruction or inflammatory changes. No free fluid. APPENDIX: Surgically absent. PELVIS: No mass. No free fluid. Unremarkable bladder. ABDOMINAL WALL: No masses. No hernias. BONES: No acute findings. OTHER: No other significant finding. IMPRESSION: NO ACUTE FINDINGS IN THE ABDOMEN OR PELVIS ON CT SCAN WITH IV CONTRAST. TECHNICAL DOCUMENTATION: JOB ID: [id number] Quality ID # [id number]: Final reports with documentation of one or more dose reduction techniques (e.g., Au tomated exposure control, adjustment of the mA and/or kV according to patient size, use of iterative reconstruction technique) 2010 [employer]- All Rights Reserved Reading location - IP/workstation name: [email or web address]
[2017-12-14 16:34] VITALS: BP 125/72
== END 2017-12-14 16:34 | disposition home or self-care (01) ==
LOC: ER 06:28
DX: R10.9 Unspecified abdominal pain (principal); R11.2 Nausea with vomiting, unspecified; K59.00 Constipation, unspecified; Z88.2 Allergy status to sulfonamides
CPT/HCPCS: 99284; 96361; 96374; 96375; 36415; 83690; 85025; 80053; 81001; 74019; 74177; J3490 ×3; J1885; J2765; J2405; J7120